=== PATIENT | female | born 1990 ===

== ENCOUNTER 2024-01-06 07:22 | Outpatient (RCR) | payer OTHER, SELFPAY | END 2024-01-06 23:59 | disposition home or self-care (01) | LOC: RPT 07:22 | PROVIDERS: FAMILY PHYSICIAN Family Medicine | DX: M54.50 Low back pain, unspecified (principal); Z73.6 Limitation of activities due to disability; M62.81 Muscle weakness (generalized); R10.30 Lower abdominal pain, unspecified | CPT/HCPCS: 97110; 97161 ==

== ENCOUNTER 2024-02-13 12:06 | Outpatient (RCR) | payer OTHER, SELFPAY | END 2024-02-13 23:59 | disposition home or self-care (01) | LOC: RPT 12:06 | PROVIDERS: FAMILY PHYSICIAN Family Medicine | DX: M54.50 Low back pain, unspecified (principal); M62.08 Separation of muscle (nontraumatic), other site; Z73.6 Limitation of activities due to disability; M62.89 Other specified disorders of muscle | CPT/HCPCS: 97110; 97112 ==

== ENCOUNTER 2024-03-19 13:05 | Outpatient (RCR) | payer OTHER, SELFPAY | END 2024-03-19 23:59 | disposition home or self-care (01) | LOC: RPT 13:05 | PROVIDERS: FAMILY PHYSICIAN Family Medicine | DX: M54.50 Low back pain, unspecified (principal); M62.08 Separation of muscle (nontraumatic), other site; Z73.6 Limitation of activities due to disability; M62.89 Other specified disorders of muscle | CPT/HCPCS: 97110; 97112 ==

== ENCOUNTER 2024-04-02 11:08 | Outpatient (RCR) | payer OTHER, SELFPAY | END 2024-04-02 23:59 | disposition home or self-care (01) | LOC: RPT 11:08 | PROVIDERS: ATTENDING PHYSICIAN Advanced Practice Midwife; FAMILY PHYSICIAN Family Medicine | DX: M54.50 Low back pain, unspecified (principal); M62.08 Separation of muscle (nontraumatic), other site; Z73.6 Limitation of activities due to disability; M62.89 Other specified disorders of muscle | CPT/HCPCS: 97110 ==